=== PATIENT | female | born 1975 | race Caucasian/White ===

== ENCOUNTER 2018-03-10 22:48 | Emergency (ER) | payer SELFPAY ==
[~2018-03-10] VITALS: Ht 165.1 cm; Wt 54.0 kg
[~2018-03-10 22:48] MED LIST: NAPR-576 PO
[2018-03-10] MEDS ORDERED: ONDANSETRON HCL 4 MG/2 ML VIAL ONE (22:51)
[2018-03-10 22:55] VITALS: BP 145/99; PULSE 79; RESP 18; TEMP 97.8; O2SAT 100
[2018-03-10] MEDS ORDERED: PROZ20CA11 PO (23:00)
[2018-03-10] MEDS ORDERED: SERO25TA PO (23:00)
[2018-03-10 23:16] LABS: AUTOMATED NEUTROPHIL # 4.6 TH/MM3 (1.8-7.7); BASOPHIL # 0.1 TH/MM3 (0-0.2); BASOPHIL % 0.7 % (0.0-2.0); EOSINOPHIL # 0.1 TH/MM3 (0-0.4); EOSINOPHIL % 1.6 % (0.0-4.0); HEMATOCRIT 35.3 % (35.0-46.0); HEMOGLOBIN 11.9 GM/DL (11.6-15.3); LYMPH % 43.2 % (9.0-44.0); MEAN CELL VOLUME 86.5 FL (80.0-100.0); MEAN CORPUSCULAR HEMOGLOBIN 29.2 PG (27.0-34.0); MEAN CORPUSCULAR HGB CONC 33.8 % (32.0-36.0); MEAN PLATELET VOLUME 8.3 FL (7.0-11.0); MONO % 5.6 % (0.0-8.0); MONOCYTE # 0.5 TH/MM3 (0-0.9); NEUT % 48.9 % (16.0-70.0); PLATELET COUNT 181 TH/MM3 (150-450); RED BLOOD COUNT 4.08 MIL/MM3 (4.00-5.30); RED CELL DISTRIBUTION WIDTH 14.7 % (11.6-17.2); WHITE BLOOD COUNT 9.3 TH/MM3 (4.0-11.0)
[2018-03-10 23:29] LABS: ALBUMIN 3.5 GM/DL (3.4-5.0); ALT (GPT) 61 U/L (10-53); AST (GOT) 55 U/L (15-37); BICARBONATE 24.4 MEQ/L (21.0-32.0); BLOOD UREA NITROGEN 21 MG/DL (7-18); CALCIUM 7.7 MG/DL (8.5-10.1); CHLORIDE 109 MEQ/L (98-107); GLOMERULAR FILTRATION RATE 79 ML/MIN (>89); GLUCOSE,RANDOM 123 MG/DL (74-106); SODIUM (NA) 143 MEQ/L (136-145)
[2018-03-10 23:31] LABS: ALKALINE PHOSPHATASE 83 U/L (45-117); TOTAL BILIRUBIN ADULT 0.3 MG/DL (0.2-1.0); TOTAL PROTEIN 7.2 GM/DL (6.4-8.2)
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
--- NOTE | 2018-03-11 02:19 | RADRPT ---
EXAM DATE/TIME: 03/11/2018 01:55 [facility] COMPARISON: No previous studies available for comparison. INDICATIONS : Right side facial swelling and jaw pain. RADIATION DOSE: 29.28 CTDIvol (mGy) MEDICAL HISTORY : Seizures. SURGICAL HISTORY : None. ENCOUNTER: Initial ACUITY: 1 day PAIN SCORE: 8/10 LOCATION: Right facial TECHNIQUE: Volumetric scanning of the facial bones was performed. Using automated exposure control and adjustme nt of the mA and/or kV according to patient size, radiation dose was kept as low as reasonably achiev able to obtain optimal diagnostic quality images. DICOM format image data is available electronicall y for review and comparison. FINDINGS: ORBITS: The orbital and infraorbital osseous structures are intact. The retroconal structures have a normal configuration. No radiopaque foreign bodies are seen. NASAL BONE: The nasal bone and maxillary spine are intact ZYGOMATIC ARCHES: Symmetric without evidence of fracture. SINUSES: The maxillary, ethmoid and frontal sinuses are intact. No air-fluid levels seen. NASAL CAVITY: The nasal septum is intact and midline. The lacrimal ducts are intact. SOFT TISSUES: There is minimal right supraorbital scalp swelling and there is mild soft tissue induration overlying the right maxillary eminence and adjacent facial soft tissues. No evidence of mass or drainable dieter ection. INTRACRANIAL: No intracranial air seen. CRIBIFORM PLATE: Grossly intact. CONCLUSION: Right forehead and facial soft tissue swelling. Cristóbal Sorenson MD on March 11, 2018 at 2:13 Board Certified Radiologist. This report was verified electronically.
[2018-03-11] MEDS ORDERED: REGL10TA5 PO (03:45)
[2018-03-11] MEDS ORDERED: ONDANSETRON HCL 4 MG/2 ML VIAL ONE (03:53)
== END 2018-03-11 04:18 | disposition home or self-care (01) ==
LOC: NEPC 22:48
DX: T40.1X1A Poisoning by heroin, accidental (unintentional), initial encounter (principal); F32.9 Major depressive disorder, single episode, unspecified
CPT/HCPCS: 70486; 80053; 82550; 85025; 96374; 99284; J2405

== ENCOUNTER 2018-03-27 10:29 | Emergency (ER) | payer SELFPAY ==
[~2018-03-27] VITALS: Ht 157.5 cm; Wt 55.5 kg
[~2018-03-27 10:29] MED LIST changes: -NAPR-576 PO; +PROZ20CA11 PO; +REGL10TA5 PO; +SERO25TA PO
[2018-03-27 10:39] VITALS: BP 119/71; PULSE 105; RESP 18; TEMP 98.5; O2SAT 97
[2018-03-27] MEDS ORDERED: NABU1TAB37 PO (11:03)
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
== END 2018-03-27 12:52 | disposition home or self-care (01) ==
LOC: NEPD 10:29
DX: S86.912A Strain of unspecified muscle(s) and tendon(s) at lower leg level, left leg, initial encounter (principal); W01.0XXA Fall on same level from slipping, tripping and stumbling without subsequent striking against object, initial encounter
CPT/HCPCS: 73564; 99283; E0113